=== PATIENT | male | born 1980 ===

== ENCOUNTER 2017-06-18 09:56 | Emergency (ER) | payer MEDICARE, MEDICAID ==
--- NOTE | 2017-06-18 11:22 | UC ---
Head Injury HPI - HPI Summary HPI Summary: Fall this morning hitting closet door with the back of his head. No LOC, No vomiting, denies numbness or weakkness. No decreased rom of the neck. - History Of Current Complaint Chief Complaint: UCHeadInjury Stated Complaint: SP FALL-HEAD/NECK PAIN Time Seen by Provider: 06/18/17 11:13 Hx Obtained From: Patient, Family/Hay Buckler Onset/Duration: Sudden Onset, Lasting Hours Severity Currently: Mild Severity Initially: Moderate Character: Dull Aggravating Factor(s): Nothing Alleviating Factor(s): Nothing Associated Signs And Symptoms: Positive: Neck Pain. Negative: Confusion, Memory Loss, Nausea, Vomiting - Allergies/Home Medications Allergies/Adverse Reactions: Allergies Allergy/AdvReac Type Severity Reaction Status Date / Time No Known Allergies Allergy Verified 06/18/17 10:24 Home Medications: Home Medications Acetaminophen TAB* [Tylenol TAB*] 975 mg PO ONCE 06/18/17 [History Confirmed ] Multiple Vitamins W/ Minerals [Multivitamin Men] 1 tab PO DAILY 06/18/17 [ History Confirmed 06/18/17] PMH/Surg Hx/FS Hx/Imm Hx Previously Healthy: No - Surgical History Surgical History: Yes Surgery Procedure, Year, and Place: Hernia repair x 2 - Family History Known Family History: Positive: Other - no related family history to the head injury. - Social History Lives: Residential Alcohol Use: None Substance Use Type: None Smoking Status (MU): Never Smoked Tobacco Review of Systems Musculoskeletal: Arthralgia Neurological: Headache All Other Systems Reviewed And Are Negative: Yes Physical Exam Triage Information Reviewed: Yes Appearance: Well-Appearing - Actively playing on his phone using both hands with good coordination. No distress. Appears comfortable. Answering questions logically and appropriately., No Pain Distress, Well-Nourished Vital Signs: Initial Vital Signs Temp 98.5 F 06/18/17 10:18 Pulse 69 06/18/17 10:18 Resp 16 06/18/17 10:18 BP 133/84 06/18/17 10:18 Pulse Ox 99 06/18/17 10:18 Vital Signs Reviewed: Yes Eye Exam: Normal Eyes: Positive: Conjunctiva Clear ENT: Positive: Uvula midline Neck: Positive: Supple, Nontender, No Lymphadenopathy Respiratory: Positive: No respiratory distress, No accessory muscle use. Negative: Respiratory distress Cardiovascular: Positive: RRR, No Murmur, Pulses Normal Abdomen Description: Positive: Nontender, No Organomegaly. Negative: Distended , Guarding Musculoskeletal: Positive: ROM Intact, No Edema Neurological: Positive: Alert, Muscle Tone Normal. Negative: Fatigued Psychological: Positive: Normal Response To Family, Age Appropriate Behavior Skin: Negative: rashes Head Injury Course/Dx - Differential Dx/Diagnosis Provider Diagnoses: head injury. Discharge - Discharge Plan Condition: Good Disposition: HOME Patient Education Materials: Head Injury (ED) Referrals: Haseeb Diana MD [Primary Care Provider] -
== END 2017-06-18 11:21 | disposition home or self-care (01) ==
LOC: UCCORT 09:56
DX: S09.90XA Unspecified injury of head, initial encounter (principal); W18.30XA Fall on same level, unspecified, initial encounter; Y93.9 Activity, unspecified; Y92.9 Unspecified place or not applicable; Y99.9 Unspecified external cause status
CPT/HCPCS: 99201; G0463